=== PATIENT | female | born 1945 | race Caucasian/White ===

== ENCOUNTER 2022-05-24 10:08 | Outpatient (CLI) | payer MEDICARE, BC | END 2022-05-24 10:09 | disposition home or self-care (01) | LOC: CSHMRI 10:08 | PROVIDERS: ATTEND Internal Medicine | DX: M25.512 Pain in left shoulder (principal); M54.2 Cervicalgia; M67.88 Other specified disorders of synovium and tendon, other site; S43.431A Superior glenoid labrum lesion of right shoulder, initial encounter; S46.211A Strain of muscle, fascia and tendon of other parts of biceps, right arm, initial encounter; M19.011 Primary osteoarthritis, right shoulder; M25.711 Osteophyte, right shoulder; M94.211 Chondromalacia, right shoulder | CPT/HCPCS: 72141 ==

== ENCOUNTER 2022-10-27 13:05 | Emergency (ER) | payer MEDICARE, BC ==
[2022-10-27 14:29] LABS: #Basophils 0.1 10x3/uL (0.0-0.2); #Eosinphils 0.1 10x3/uL (0.0-0.5); #Monocytes 0.5 10x3/uL (0.0-1.1); #Neutrophils 2.8 10x3/uL (1.5-8.4); %Basophils 1.3 % (0.0-2.0); %Eosinophils 2.2 % (0.0-6.0); %Lymphocytes 35.4 % (18.0-47.0); %Monocytes 9.7 % (0.0-10.0); %Neutrophils 51.2 % (40.0-75.0); Hemoglobin 15.5 g/dL (12.0-15.5); Mean Corpuscular HGB CONC 33.5 g/dL (32.0-36.0); Mean Corpuscular Hemoglobin 29.2 pg (27.0-33.0); Mean Corpuscular Volume 87.2 fl (81.6-98.3); Mean Platelet Volume 11.3 fl (7.4-10.4); Platelet Count 199 10x3/uL (150-450); RBC Distribution Width 12.2 % (11.5-14.5); White Blood Cell (WBC) Count 5.4 10x3/uL (3.5-10.5)
[2022-10-27 14:40] LABS: ALT (SGPT) 42 U/L (8-55); AST (SGOT) 46 U/L (5-34); Albumin 4.1 g/dL (3.4-4.8); Alkaline Phosphatase 82 U/L (40-110); Anion Gap 13 mmol/L (10-20); BUN (Urea Nitrogen) 11 mg/dL (9.8-20.1); Bilirubin, Total 0.7 mg/dL (0.2-1.2); Calc. Creatinine Clearance 0 mL/min (70-130); Calcium 9.6 mg/dL (7.8-10.44); Carbon Dioxide 29 mmol/L (23-31); Chloride 103 mmol/L (98-107); Estimated GFR 50; Globulin 3.3 g/dL (2.4-3.5); Glucose 111 mg/dL (83-110); Potassium 3.8 mmol/L (3.5-5.1); Protein, Total 7.4 g/dL (5.8-8.1); Sodium 141 mmol/L (136-145)
[2022-10-27 16:22] LABS: CK (CPK) 53 U/L (29-168); Lipase 16 U/L (8-78)
[2022-10-27 17:38] LABS: Bilirubin Neg (Negative); Blood, Urine Negative (Negative); Clarity Clear (Clear); Glucose, Urine (Dipstick) Normal (Negative); Ketone, Urine Negative (Negative); Leukocyte 100 (Negative); Nitrite Negative (Negative); Protein, Urine (Dipstick) 15 mg/dl (Neg-Trace); Urobilinogen Normal mg/dL (Less than 2)
[2022-10-27 18:43] LABS: Bacteria/HPF None Seen HPF (None Seen); RBC/HPF None Seen HPF (0-3); Squamous Epithelial 0-3 HPF (0-3); WBC/HPF 0-3 HPF (0-3)
== END 2022-10-27 18:57 | disposition home or self-care (01) ==
LOC: CSHERS 13:05
DX: R10.13 Epigastric pain (principal); E03.9 Hypothyroidism, unspecified; I10 Essential (primary) hypertension
CPT/HCPCS: 74176; 80053; 81003; 81015; 82550; 83690; 84484; 85025; 99283

== ENCOUNTER 2022-11-15 19:19 | Emergency (ER) | payer MEDICARE, BC ==
[~2022-11-15 19:19] MED LIST: Iopamidol 370 76% 100 ML VIAL ONE
[2022-11-15] MEDS ORDERED: diphenhydrAMINE 50 MG/ML VIAL ONE (20:14)
[2022-11-15] MEDS ORDERED: Famotidine/PF 20 mg/2ml Vial ONE (20:15)
[2022-11-15] MEDS ORDERED: methylPREDNISolone Sod Succ 40 MG VIAL ONE (20:15)
[2022-11-15] MEDS ORDERED: Morphine 2 MG/ML VIAL ONE (20:15)
[2022-11-15] MEDS ORDERED: Ondansetron PF 4 MG/2 ML Vial ONE (20:15)
[2022-11-15 20:31] LABS: ALT (SGPT) 38 U/L (8-55); AST (SGOT) 40 U/L (5-34); Albumin 4.3 g/dL (3.4-4.8); Alkaline Phosphatase 75 U/L (40-110); Anion Gap 17 mmol/L (10-20); BUN (Urea Nitrogen) 12 mg/dL (9.8-20.1); Bilirubin, Total 0.6 mg/dL (0.2-1.2); Calc. Creatinine Clearance 0 mL/min (70-130); Calcium 9.5 mg/dL (7.8-10.44); Carbon Dioxide 22 mmol/L (23-31); Chloride 105 mmol/L (98-107); Estimated GFR 44; Globulin 2.9 g/dL (2.4-3.5); Glucose 105 mg/dL (83-110); Lipase 20 U/L (8-78); Potassium 4.2 mmol/L (3.5-5.1); Protein, Total 7.2 g/dL (5.8-8.1); Sodium 140 mmol/L (136-145)
[2022-11-15 20:37] LABS: #Basophils 0.1 10x3/uL (0.0-0.2); #Eosinphils 0.1 10x3/uL (0.0-0.5); #Monocytes 0.6 10x3/uL (0.0-1.1); %Basophils 1.4 % (0.0-2.0); %Eosinophils 1.2 % (0.0-6.0); %Lymphocytes 28.5 % (18.0-47.0); %Monocytes 8.9 % (0.0-10.0); %Neutrophils 59.7 % (40.0-75.0); Hemoglobin 15.2 g/dL (12.0-15.5); Mean Corpuscular HGB CONC 33.7 g/dL (32.0-36.0); Mean Corpuscular Hemoglobin 28.7 pg (27.0-33.0); Mean Corpuscular Volume 85.3 fl (81.6-98.3); Mean Platelet Volume 11.2 fl (7.4-10.4); Platelet Count 193 10x3/uL (150-450); RBC Distribution Width 12.5 % (11.5-14.5); Red Blood Cell (RBC) Count 5.29 10x6/uL (3.90-5.03); White Blood Cell (WBC) Count 6.7 10x3/uL (3.5-10.5)
[2022-11-15 21:38] LABS: Bilirubin Neg (Negative); Blood, Urine Negative (Negative); Clarity Clear (Clear); Glucose, Urine (Dipstick) Normal (Negative); Ketone, Urine Negative (Negative); Leukocyte 500 (Negative); Nitrite Negative (Negative); Protein, Urine (Dipstick) Negative (Neg-Trace); Urobilinogen Normal mg/dL (Less than 2)
[2022-11-15 21:46] LABS: Bacteria/HPF 1+ HPF (None Seen); Mucous/LPF Few LPF (<2+); RBC/HPF None Seen HPF (0-3); Squamous Epithelial 0-3 HPF (0-3); WBC/HPF 0-3 HPF (0-3)
[2022-11-15] MEDS ORDERED: Acetaminophen/Codeine 30-300mg Tablet ONE (23:46)
== END 2022-11-15 23:52 | disposition home or self-care (01) ==
LOC: CSHERS 19:19
DX: R91.1 Solitary pulmonary nodule (principal); R10.11 Right upper quadrant pain; I10 Essential (primary) hypertension; E03.9 Hypothyroidism, unspecified
CPT/HCPCS: 71275; 74174; 80053; 81003; 81015; 83605; 83690; 84484; 85025; 93005; 96374; 96375; J1200; J2272; J2405; J2920; S0028

== ENCOUNTER 2024-09-21 13:29 | Emergency (ER) | payer MEDICARE ==
[2024-09-21] MEDS ORDERED: methylPREDNISolone Sod Succ/PF 125 MG/2 ML VIAL ONE (14:13)
[2024-09-21] MEDS ORDERED: Ondansetron PF 4 MG/2 ML Vial ONE (14:13)
[2024-09-21] MEDS ORDERED: Ketorolac Tromethamine 30 MG (1 mL) VIAL ONE (14:13)
[2024-09-21] MEDS ORDERED: diphenhydrAMINE 50 MG/ML VIAL ONE (14:13)
[2024-09-21] MEDS ORDERED: Famotidine/PF 20 mg/2ml Vial ONE (14:14)
[2024-09-21 14:21] LABS: #Basophils 0.09 10x3/uL (0.0-0.2); #Eosinophils 0.06 10x3/uL (0.0-0.5); #Monocytes 0.51 10x3/uL (0.0-1.1); #Neutrophils 2.78 10x3/uL (1.5-8.4); %Basophils 1.6 % (0.0-2.0); %Eosinophils 1.1 % (0.0-6.0); %Neutrophils 48.9 % (40.0-75.0); Hematocrit 45.7 % (34.9-44.5); Hemoglobin 14.8 g/dL (12.0-15.5); Mean Corpuscular HGB CONC 32.4 g/dL (32.0-36.0); Mean Corpuscular Hemoglobin 28.2 pg (27.0-33.0); Mean Platelet Volume 10.9 fL (7.4-10.4); Platelet Count 196 10x3/uL (150-450); RBC Distribution Width 12.6 % (11.5-14.5); Red Blood Cell (RBC) Count 5.25 10x6/uL (3.90-5.03); White Blood Cell (WBC) Count 5.7 10x3/uL (3.5-10.5)
[2024-09-21] MEDS ORDERED: Iopamidol 370 76% 100 ML VIAL ONE (14:26)
[2024-09-21 14:46] LABS: ALT (SGPT) 37 U/L (8-55); AST (SGOT) 38 U/L (5-34); Albumin 4.2 g/dL (3.4-4.8); Alkaline Phosphatase 78 U/L (40-110); Anion Gap 15 mmol/L (10-20); BUN (Urea Nitrogen) 17 mg/dL (9.8-20.1); Bilirubin, Total 0.8 mg/dL (0.2-1.2); Calc. Creatinine Clearance 0 mL/min (70-130); Calcium 10.1 mg/dL (7.8-10.44); Carbon Dioxide 25 mmol/L (23-31); Chloride 104 mmol/L (98-107); Estimated GFR 43; Globulin 3.6 g/dL (2.4-3.5); Glucose 99 mg/dL (83-110); Lipase 18 U/L (8-78); Potassium 4.2 mmol/L (3.5-5.1); Protein, Total 7.8 g/dL (5.8-8.1); Sodium 140 mmol/L (136-145)
[2024-09-21 17:33] LABS: Bilirubin Neg (Negative); Blood, Urine Negative (Negative); Clarity Clear (Clear); Glucose, Urine (Dipstick) Normal (Negative); Ketone, Urine Negative (Negative); Leukocyte 25 (Negative); Nitrite Negative (Negative); Protein, Urine (Dipstick) Negative (Neg-Trace); Specific Gravity, Urine 1.005 (1.005-1.030); Urobilinogen Normal mg/dL (Less than 2); pH, Urine 6.5 (5.0-9.0)
[2024-09-21 17:57] LABS: CAUTI Indications for Culture Dysuria,urgency,freq; RBC/HPF 0-3 HPF (0-3); Transitional Epithelial 0-3 HPF (None Seen)
[2024-09-21 17:59] LABS: Bacteria/HPF 1+ HPF (None Seen); Mucous/LPF 1+ LPF (<2+)
[2024-09-21 18:03] LABS: Calcium Oxalate Crystals Rare HPF (None Seen)
[2024-09-21 18:05] LABS: Urine Culture Reflex No No
== END 2024-09-21 18:46 | disposition home or self-care (01) ==
LOC: CSHERS 13:29
DX: R10.32 Left lower quadrant pain (principal); I10 Essential (primary) hypertension
CPT/HCPCS: 74177; 80053; 81001; 83690; 85025; J1200; J1885; J2405; J2919; J3490; 96374; 96375; Q9967